=== PATIENT | male | born 1985 | race Caucasian/White ===

== ENCOUNTER 2016-09-13 19:26 | Emergency (ER) | payer OTHER ==
[~2016-09-13] VITALS: Ht 193 cm; Wt 134.1 kg
[2016-09-13 19:31] VITALS: BP 156/94; PULSE 79; RESP 18; O2SAT 100
[2016-09-13] MEDS ORDERED: TdaP Vaccine 0.5 mL Inj IM ONE (20:10)
--- NOTE | 2016-09-13 20:35 | ED.REPORT ---
HPI-General Illness Date of Service September 13, 2016 ED Provider: Manas Deleon PA-C Toñito is not otherwise healthy 30-year-old male presenting with chief complaint of a laceration. Patient states that he struck the top of his head against the top of a metal door frame at work today, causing a laceration near the crown of the scalp. Denies loss of consciousness, use of blood thinners, headache, vomiting, seizures, neck pain, numbness or tingling to his extremities. He is unsure of his tetanus status. Nursing Notes Stated Complaint: HIT HEAD AT WORK Chief Complaint: Laceration Nursing Notes Reviewed: Yes Allergies: Coded Allergies: No Known Allergies (Unverified , 09/13/16) General Time Seen by MD: 20:01 Chief Complaint Laceration Past Medical History Past Medical History Notes: Denies Review of Systems Negative unless stated otherwise in history of present illness Physical Exam General: Well appearing, well developed, well nourished, no acute distress. Head: 2 cm laceration near the crown of the scalp with 1 cm surrounding swelling. Neck: Supple, negative midline spinous process tenderness. Eyes: No scleral icterus or injection. No discharge. Vision grossly intact. ENT: Voice clear, hearing grossly intact. Respiratory: No respiratory distress, no increased work of breathing. Speaks in complete sentences. Skin: Warm and dry. Neurological: Strength and sensation intact in distal extremities, otherwise Grossly nonfocal. Psychological: alert and oriented. Speech appropriate, linear and logical. Behavior appropriate. Vital Signs Vital Signs Date Time Temp Pulse Resp B/P Pulse Ox O2 Delivery O2 Flow Rate FiO2 09/13/16 21:08 70 20 120/74 99 Room Air 09/13/16 21:08 70 20 120/74 99 Room Air 09/13/16 19:31 36.6 79 18 156/94 100 Room Air Initial VS: Vital signs abnormal (elevated blood pressure) Procedures Laceration Management Procedure Performed by: Allied health pract Consent / Setup / Site Prep: Informed consent provided, Consent from patient , Hand hygiene observed Wound Length: 2 cm Local Anesthesia: Bupivacaine 0.5% (with epinephrine), 4cc, 27g needle Wound Preparation: Normal saline Debridement: None Irrigation: 250 cc Foreign Body Explore / Removal: Explored for foreign body Repair Skin: Hemal # Sutures - Skin: 5 Closure Layers: 1 Post-Procedure / Complications: Antibiotic oint applied, Dressing applied, No complications, Condition improved, Tolerated procedure well, Patient stable Re-Eval/Medical Decision Med Decision/Clinical Course Otherwise only 30-year-old male presents with a scalp laceration secondary to striking his head on the top of a metal door. The concern for intracranial or cervical injury. Patient's unsure of his tetanus status is updated for him. Wound is anesthetized with bupivacaine and epinephrine, irrigated with normal saline, closed with 5 hemal, dressed with antibiotic ointment and gauze. I see no indication for prophylactic antibiotics as the patient is healthy and the wound clean. Completed L&I paperwork, provided primary care referral, emergency return precautions, advised regarding [id number] analgesia. The patient verbalizes understanding of and consented to the plan. Discharge & Departure Primary Impression: Scalp laceration Encounter type: initial encounter Qualified Code: S01.01XA - Laceration without foreign body of scalp, initial encounter Disposition: Home Discharge Condition All VS Reviewed: Yes Condition: Stable Patient Instructions: Laceration (ED) Additional Instructions: Evaluation in the emergency department for a laceration. This appears to be a clean wound. I see no indication for antibiotics at this time. We have provided U with a tetanus booster We have cleaned, stapled and dressed the wound with antibiotic ointment and gauze. Please leave this dressing on and dry for the next 24 hours. After that you can remove the dressing, clean with soap and water and then reapply antibiotic ointment and gauze or Band-Aid. Please do not submerge the wound as in washing dishes, swimming or soaking in a tub until you have the sutures removed. The pain is best treated with 400 mg of ibuprofen (Advil, Motrin) every 6 hours , or 1000 mg of acetaminophen (Tylenol) every 6 hours. These drugs can be taken at the same time for more severe pain. I will provide you with a referral for a primary care provider Be vigilant for signs of infection. While a small amount of redness, tenderness and clear or pink drainage is normal, any increasing pain, redness, swelling or the appearance of pus suggests infection. More severe infection as suggested by symptoms such as fever, chills, feeling ill, racing heart. Please return to emergency Department if you notice signs of infection. Follow-up with your primary care provider or return to the emergency department in 7-10 days for suture removal. I also note that your blood pressure was elevated during your visit to the emergency department. Please discuss this with your primary care provider. Referrals: Miles Chong MD EDSupervising Provider for APC: Morgan Velásquez DO copies to: Miles Chong MD, Seth PA-C September 13, 2016 20:35
[2016-09-13 21:08] VITALS: BP 120/74; PULSE 70; RESP 20; O2SAT 99
== END 2016-09-13 21:09 | disposition home or self-care (01) ==
LOC: SED 19:26
DX: S01.01XA Laceration without foreign body of scalp, initial encounter (principal); W22.8XXA Striking against or struck by other objects, initial encounter; Y93.01 Activity, walking, marching and hiking; Y92.69 Other specified industrial and construction area as the place of occurrence of the external cause; Y99.0 Civilian activity done for income or pay; Z23 Encounter for immunization